=== PATIENT | male | born 1985 | race Caucasian/White ===

== ENCOUNTER 2025-04-24 21:57 | Emergency (ER) | payer OTHER ==
[~2025-04-24] VITALS: Ht 182.9 cm; Wt 72.6 kg
[2025-04-24 22:12] VITALS: BP 118/75
[2025-04-25 00:51] VITALS: BP 120/75; TEMP 98; O2SAT 98
== END 2025-04-25 00:52 | disposition home or self-care (01) ==
LOC: ER 21:57
DX: M79.641 Pain in right hand (principal); M79.644 Pain in right finger(s); F19.10 Other psychoactive substance abuse, uncomplicated; Z87.2 Personal history of diseases of the skin and subcutaneous tissue
CPT/HCPCS: 73120; A4606; A4663